=== PATIENT | female | born 1995 | race Caucasian/White ===

== ENCOUNTER 2018-02-23 22:59 | Inpatient (IN) | payer MEDICAID, OTHER ==
[~2018-02-23] VITALS: Ht 167.6 cm; Wt 63.6 kg
[~2018-02-23 22:59] MED LIST: DIVA250T25 PO; OLAN10TA3 PO
[2018-02-23 23:53] LABS: BASOPHILS % (AUTO) 0.2 % (0.0-2.0); EOSINOPHILS % (AUTO) 0.7 % (1.0-6.0); HEMATOCRIT 41.5 % (36-46); HEMOGLOBIN 14.3 g/dL (12.0-16.0); LYMPHOCYTES % (AUTO) 38.8 % (22.0-44.0); MEAN CORPUSCULAR HEMOGLOBIN 29.1 pg (26.0-34.0); MEAN CORPUSCULAR HGB CONC 34.5 G/dL (31.0-37.0); MEAN CORPUSCULAR VOLUME 84 fL (80-100); MONOCYTES # (AUTO) 0.5 K/uL (0.1-1.0); MONOCYTES % (AUTO) 7.1 % (2.0-9.0); NEUTROPHILS # (AUTO) 4.1 K/uL (1.8-7.7); NEUTROPHILS % (AUTO) 53.2 % (40.0-70.0); PLATELET COUNT (AUTO) 211 K/uL (150-450); RED BLOOD CELL COUNT(AUTO) 4.92 MIL/uL (4.00-5.20); RED CELL DISTRIBUTION WIDTH 12.7 % (11.5-14.5)
[2018-02-24 00:04] LABS: ANION GAP 7 mmol/L (8-16); CALCIUM, TOTAL 9.6 mg/dL (8.8-10.5); CARBON DIOXIDE 31 mmol/L (22-29); CHLORIDE 102 mmol/L (98-107); CREATININE 0.68 mg/dL (0.60-1.30); GLOMERULAR FILTR. RATE CALC > 60 mL/min (>60); GLUCOSE,RANDOM 88 mg/dL (70-110); POTASSIUM 3.9 mmol/L (3.5-5.1); SODIUM SERUM 140 mmol/L (136-145); UREA NITROGEN, BLOOD 15 mg/dL (7-18)
[2018-02-24 00:15] LABS: ALANINE AMINOTRANSFERASE 20 U/L (12-78); ALBUMIN 4.5 g/dL (3.4-5.0); ALKALINE PHOSPHATASE 57 U/L (46-116); ASPARTATE AMINOTRANSFERASE 14 U/L (15-37); BILIRUBIN,TOTAL 0.3 mg/dL (0.1-1.0); TOTAL PROTEIN, SERUM 8.3 g/dL (6.4-8.2)
[2018-02-24] MEDS ORDERED: HALOPERIDOL 5 MG TABLET PO PRN (01:30)
[2018-02-24 01:33] LABS: AMPHET/METH SCREEN,URINE NEGATIVE (NEGATIVE); BARBITURATE SCREEN, URINE NEGATIVE (NEGATIVE); BENZODIAZEPINES SCREEN,URINE NEGATIVE (NEGATIVE); CANNABINOID SCREEN,URINE NEGATIVE (NEGATIVE); COCAINE SCREEN,URINE NEGATIVE (NEGATIVE); METHADONE SCREEN, URINE NEGATIVE (NEGATIVE); OPIATE SCREEN,URINE NEGATIVE (NEGATIVE); PHENCYCLIDINE SCREEN,URINE NEGATIVE (NEGATIVE)
[2018-02-24 06:25] VITALS: BP 122/72
[2018-02-24 08:18] VITALS: BP 98/69
[2018-02-24] MEDS: DIVALPROEX SODIUM 500 MG DR TABLET PO SCH ×2 (10:21→17:29)
[2018-02-24 16:35] VITALS: BP 105/62
[2018-02-24] MEDS: OLANZapine 7.5 MG TABLET PO SCH (20:36)
[2018-02-24] MEDS: ZOLPIDEM TARTRATE 10 MG TABLET PO PRN (20:37)
[2018-02-25 08:17] VITALS: BP 100/57
[2018-02-25] MEDS: DIVALPROEX SODIUM 500 MG DR TABLET PO SCH ×2 (08:33→16:59)
[2018-02-25 16:22] VITALS: BP 109/66
[2018-02-25] MEDS: DOCUSATE SODIUM 100 MG CAPSULE PO SCH (16:59)
[2018-02-25] MEDS: OLANZapine 7.5 MG TABLET PO SCH (21:04)
[2018-02-26 05:55] VITALS: BP 112/67
[2018-02-26] MEDS: DOCUSATE SODIUM 100 MG CAPSULE PO SCH ×2 (08:12→16:11)
[2018-02-26] MEDS: DIVALPROEX SODIUM 500 MG DR TABLET PO SCH ×2 (08:12→16:11)
[2018-02-26 08:34] VITALS: BP 115/73
[2018-02-26 09:32] LABS: FREE T4 (FREE THYROXINE) 0.82 ng/dL (0.76-1.46); THYROID STIMULATING HORMONE 1.17 uIU/mL (0.36-3.74)
[2018-02-26 16:10] VITALS: BP 130/69
[2018-02-26] MEDS: OLANZapine 7.5 MG TABLET PO SCH (21:09)
[2018-02-27 06:00] VITALS: BP 109/66
[2018-02-27 08:28] VITALS: BP 119/60
[2018-02-27] MEDS: DOCUSATE SODIUM 100 MG CAPSULE PO SCH ×2 (08:28→16:14)
[2018-02-27] MEDS: DIVALPROEX SODIUM 500 MG DR TABLET PO SCH ×2 (08:28→16:14)
[2018-02-27 20:26] VITALS: BP 116/61
[2018-02-27] MEDS: OLANZapine 7.5 MG TABLET PO SCH (20:32)
[2018-02-28 07:22] VITALS: BP 118/64
[2018-02-28 08:00] VITALS: BP 110/68
[2018-02-28] MEDS: DOCUSATE SODIUM 100 MG CAPSULE PO SCH ×2 (08:29→16:06)
[2018-02-28] MEDS: DIVALPROEX SODIUM 500 MG DR TABLET PO SCH ×2 (08:29→16:07)
[2018-02-28 16:33] VITALS: BP 131/71
[2018-02-28] MEDS: OLANZapine 7.5 MG TABLET PO SCH (20:19)
[2018-03-01 07:22] VITALS: BP 132/81
[2018-03-01 09:13] VITALS: BP 104/54
[2018-03-01] MEDS: DOCUSATE SODIUM 100 MG CAPSULE PO SCH ×2 (10:03→16:56)
[2018-03-01] MEDS: DIVALPROEX SODIUM 500 MG DR TABLET PO SCH ×2 (10:03→16:56)
[2018-03-01 16:22] VITALS: BP 109/68
[2018-03-01] MEDS: OLANZapine 7.5 MG TABLET PO SCH (20:10)
[2018-03-01] MEDS: ZOLPIDEM TARTRATE 10 MG TABLET PO PRN (21:38)
[2018-03-02 07:00] VITALS: BP 108/65
[2018-03-02 08:17] VITALS: BP 106/61
[2018-03-02] MEDS: DIVALPROEX SODIUM 500 MG DR TABLET PO SCH ×2 (09:00→16:18)
[2018-03-02] MEDS: DOCUSATE SODIUM 100 MG CAPSULE PO SCH ×2 (09:00→16:19)
[2018-03-02 16:18] VITALS: BP 115/69
[2018-03-02] MEDS: LORazepam 2 MG TABLET PO PRN (16:18)
[2018-03-02] MEDS: OLANZapine 7.5 MG TABLET PO SCH (20:40)
[2018-03-02] MEDS: ZOLPIDEM TARTRATE 10 MG TABLET PO PRN (20:46)
[2018-03-03 04:25] VITALS: BP 116/70
[2018-03-03 08:12] VITALS: BP 114/61
[2018-03-03] MEDS: DOCUSATE SODIUM 100 MG CAPSULE PO SCH ×2 (10:16→17:21)
[2018-03-03] MEDS: DIVALPROEX SODIUM 500 MG DR TABLET PO SCH ×2 (10:17→17:22)
[2018-03-03 16:50] VITALS: BP 117/65
[2018-03-03] MEDS: LORazepam 2 MG TABLET PO PRN (18:10)
[2018-03-03] MEDS: OLANZapine 7.5 MG TABLET PO SCH (20:39)
[2018-03-04 04:35] VITALS: BP 114/76
[2018-03-04 08:23] VITALS: BP 106/63
[2018-03-04] MEDS: DIVALPROEX SODIUM 500 MG DR TABLET PO SCH ×2 (08:39→16:35)
[2018-03-04] MEDS: LORazepam 2 MG TABLET PO PRN (08:39)
[2018-03-04] MEDS: DOCUSATE SODIUM 100 MG CAPSULE PO SCH ×2 (08:39→16:35)
[2018-03-04 16:29] VITALS: BP 125/74
[2018-03-04] MEDS: OLANZapine 7.5 MG TABLET PO SCH (20:53)
[2018-03-05 07:26] VITALS: BP 101/64
[2018-03-05 09:29] VITALS: BP 119/72
[2018-03-05] MEDS: DIVALPROEX SODIUM 500 MG DR TABLET PO SCH ×2 (09:41→16:24)
[2018-03-05] MEDS: DOCUSATE SODIUM 100 MG CAPSULE PO SCH ×2 (09:41→16:24)
[2018-03-05 16:05] VITALS: BP 112/75
[2018-03-05] MEDS: OLANZapine 7.5 MG TABLET PO SCH (20:37)
[2018-03-06 06:38] VITALS: BP 109/69
[2018-03-06 08:16] VITALS: BP 103/62
[2018-03-06] MEDS: DIVALPROEX SODIUM 500 MG DR TABLET PO SCH ×2 (08:52→17:42)
[2018-03-06] MEDS: DOCUSATE SODIUM 100 MG CAPSULE PO SCH ×2 (08:52→17:42)
[2018-03-06 16:23] VITALS: BP 111/63
[2018-03-06] MEDS: OLANZapine 7.5 MG TABLET PO SCH (20:43)
[2018-03-07 06:23] VITALS: BP 110/70
[2018-03-07] MEDS: DOCUSATE SODIUM 100 MG CAPSULE PO SCH ×2 (08:13→16:23)
[2018-03-07] MEDS: DIVALPROEX SODIUM 500 MG DR TABLET PO SCH ×2 (08:14→16:23)
[2018-03-07 08:30] VITALS: BP 121/66
[2018-03-07 16:18] VITALS: BP 114/67
[2018-03-07] MEDS: OLANZapine 7.5 MG TABLET PO SCH (20:03)
[2018-03-07] MEDS ORDERED: OLAN7.5T2 PO (20:47)
[2018-03-07] MEDS ORDERED: DIVA500T35 PO (20:47)
[2018-03-07] MEDS ORDERED: DOCU100C33 PO (20:49)
[2018-03-08 06:19] VITALS: BP 103/64
[2018-03-08 08:31] VITALS: BP 104/61
[2018-03-08] MEDS: DIVALPROEX SODIUM 500 MG DR TABLET PO SCH (08:41)
[2018-03-08] MEDS: DOCUSATE SODIUM 100 MG CAPSULE PO SCH (08:41)
[2018-03-08] MEDS ORDERED: OLAN7.5T2 PO (10:26)
[2018-03-08] MEDS ORDERED: DSS100 PO (10:30)
== END 2018-03-08 13:30 | disposition home or self-care (01) | DRG 750 ==
LOC: EMS 22:59 → B3A 02-24 01:57 → B2S 02-24 01:57
PROVIDERS: ADMIT Psychiatry & Neurology Psychiatry; ATTEND Psychiatry & Neurology Psychiatry
DX: F20.0 Paranoid schizophrenia (principal); R45.851 Suicidal ideations; R00.1 Bradycardia, unspecified; E11.9 Type 2 diabetes mellitus without complications; I10 Essential (primary) hypertension
CPT/HCPCS: 83036; 84436; 84439; 84443; 87081; 99285; G0480

== ENCOUNTER 2019-11-18 14:39 | Emergency (ER) | payer MEDICAID, OTHER ==
[~2019-11-18 14:39] MED LIST changes: +DIVA-78 PO; -DIVA250T25 PO; +DSS100 PO; -OLAN10TA3 PO; +OLAN7.5T2 PO
[2019-11-18] MEDS ORDERED: DIVA-76 PO (23:16)
== END 2019-11-18 16:38 | disposition left against medical advice (07) ==
LOC: EMS 14:40
DX: F29 Unspecified psychosis not due to a substance or known physiological condition (principal); Z53.21 Procedure and treatment not carried out due to patient leaving prior to being seen by health care provider

== ENCOUNTER 2019-11-18 19:47 | Emergency (ER) | payer OTHER ==
[~2019-11-18] VITALS: Ht 175.3 cm; Wt 68.2 kg
[2019-11-18 21:15] LABS: BASOPHILS % (AUTO) 0.1 % (0.0-2.0); EOSINOPHILS % (AUTO) 0.9 % (1.0-6.0); HEMATOCRIT 41.5 % (36-46); HEMOGLOBIN 14.3 g/dL (12.0-16.0); LYMPHOCYTES # (AUTO) 2.2 K/uL (1.0-4.8); LYMPHOCYTES % (AUTO) 30.1 % (22.0-44.0); MEAN CORPUSCULAR HGB CONC 34.4 G/dL (31.0-37.0); MEAN CORPUSCULAR VOLUME 84 fL (80-100); MONOCYTES # (AUTO) 0.8 K/uL (0.1-1.0); MONOCYTES % (AUTO) 10.6 % (2.0-9.0); NEUTROPHILS # (AUTO) 4.3 K/uL (1.8-7.7); NEUTROPHILS % (AUTO) 58.3 % (40.0-70.0); PLATELET COUNT (AUTO) 223 K/uL (150-450); RED BLOOD CELL COUNT(AUTO) 4.92 MIL/uL (4.00-5.20); RED CELL DISTRIBUTION WIDTH 12.8 % (11.5-14.5)
[2019-11-18 21:25] LABS: ANION GAP 9 mmol/L (8-16); CALCIUM, TOTAL 9.4 mg/dL (8.8-10.5); CARBON DIOXIDE 28 mmol/L (22-29); CHLORIDE 104 mmol/L (98-107); CREATININE 0.78 mg/dL (0.60-1.30); GLOMERULAR FILTR. RATE CALC > 60 mL/min (>60); GLUCOSE,RANDOM 91 mg/dL (70-110); POTASSIUM 3.3 mmol/L (3.5-5.1); SODIUM SERUM 141 mmol/L (136-145); UREA NITROGEN, BLOOD 12 mg/dL (7-18)
[2019-11-18 21:30] LABS: ALANINE AMINOTRANSFERASE 16 U/L (12-78); ALBUMIN 4.8 g/dL (3.4-5.0); ALKALINE PHOSPHATASE 52 U/L (46-116); ASPARTATE AMINOTRANSFERASE 17 U/L (15-37); BILIRUBIN,TOTAL 0.4 mg/dL (0.1-1.0); TOTAL PROTEIN, SERUM 8.2 g/dL (6.4-8.2)
[2019-11-18 21:51] LABS: HCG,QUANTITATIVE < 1 mIU/mL (0-6)
[2019-11-18 22:06] LABS: VALPROIC ACID < 3 mcg/mL (50-100)
[2019-11-18] MEDS ORDERED: HALOPERIDOL 5 MG TABLET PO ONE (22:15)
[2019-11-18] MEDS ORDERED: POTASSIUM CHLORIDE 20 MEQ ER TABLET PO ONE (22:30)
[2019-11-18 22:35] VITALS: BP 137/75
[2019-11-18] MEDS ORDERED: DIVA-76 PO (23:16)
== END 2019-11-18 23:15 | disposition home or self-care (01) ==
LOC: EMS 19:49
DX: F25.9 Schizoaffective disorder, unspecified (principal); F31.9 Bipolar disorder, unspecified
CPT/HCPCS: 36415; 80053; 80164; 84702; 85025; 99284; G0480

== ENCOUNTER 2019-12-10 20:27 | Emergency (ER) | payer OTHER ==
[~2019-12-10] VITALS: Ht 175.3 cm; Wt 89.1 kg
[~2019-12-10 20:27] MED LIST changes: +DIVA-76 PO; -DIVA-78 PO; -DSS100 PO
[2019-12-10 21:15] VITALS: BP 128/78
[2019-12-11] MEDS ORDERED: LIDOCAINE 1% 10 ML VIAL ONE (00:54)
[2019-12-11] MEDS ORDERED: LEVONORGESTREL 1.5 MG TABLET PO ONE (01:00)
[2019-12-11] MEDS ORDERED: AZITHROMYCIN 250 MG TABLET PO ONE (01:00)
[2019-12-11] MEDS ORDERED: CefTRIAXone SODIUM 1 GM/VIAL IM ONE (01:00)
[2019-12-11] MEDS ORDERED: MetroNIDAZOLE 500 MG TABLET PO ONE (01:00)
== END 2019-12-11 01:41 | disposition home or self-care (01) ==
LOC: EMS 20:29
DX: Z20.2 Contact with and (suspected) exposure to infections with a predominantly sexual mode of transmission (principal); F31.9 Bipolar disorder, unspecified; F20.9 Schizophrenia, unspecified; Z79.899 Other long term (current) drug therapy
CPT/HCPCS: 81025; 96372; 99284; J0696; J3490

== ENCOUNTER 2020-02-07 17:15 | Inpatient (IN) | payer MEDICAID, OTHER ==
[~2020-02-07] VITALS: Ht 175.3 cm; Wt 94.4 kg
[2020-02-07 21:03] VITALS: BP 116/67
[2020-02-07 21:06] VITALS: BP 98/65
[2020-02-07] MEDS ORDERED: INFLUENZA VIRUS VACCINE QVS 2019-20 (3YR+)/PF 60 MCG/0.5 ML SYRINGE IM ONE (23:15)
[2020-02-07] MEDS: ZOLPIDEM TARTRATE 10 MG TABLET PO PRN (23:16)
[2020-02-08 00:13] VITALS: BP 101/61
[2020-02-08 07:18] LABS: BASOPHILS % (AUTO) 0.2 % (0.0-2.0); EOSINOPHILS % (AUTO) 1.4 % (1.0-6.0); HEMATOCRIT 40.7 % (36-46); HEMOGLOBIN 13.4 g/dL (12.0-16.0); LYMPHOCYTES # (AUTO) 3.1 K/uL (1.0-4.8); LYMPHOCYTES % (AUTO) 42.2 % (22.0-44.0); MEAN CORPUSCULAR HEMOGLOBIN 27.6 pg (26.0-34.0); MEAN CORPUSCULAR HGB CONC 32.9 G/dL (31.0-37.0); MEAN CORPUSCULAR VOLUME 84 fL (80-100); MONOCYTES # (AUTO) 0.5 K/uL (0.1-1.0); MONOCYTES % (AUTO) 7.6 % (2.0-9.0); NEUTROPHILS # (AUTO) 3.5 K/uL (1.8-7.7); NEUTROPHILS % (AUTO) 48.6 % (40.0-70.0); PLATELET COUNT (AUTO) 200 K/uL (150-450); RED BLOOD CELL COUNT(AUTO) 4.84 MIL/uL (4.00-5.20); RED CELL DISTRIBUTION WIDTH 13.8 % (11.5-14.5)
[2020-02-08 07:47] LABS: ALANINE AMINOTRANSFERASE 15 U/L (12-78); ALBUMIN 4.1 g/dL (3.4-5.0); ALKALINE PHOSPHATASE 52 U/L (46-116); ANION GAP 7 mmol/L (8-16); ASPARTATE AMINOTRANSFERASE 12 U/L (15-37); BILIRUBIN,TOTAL 0.2 mg/dL (0.1-1.0); CALCIUM, TOTAL 8.9 mg/dL (8.8-10.5); CARBON DIOXIDE 30 mmol/L (22-29); CHLORIDE 102 mmol/L (98-107); CHOL/HDL RATIO 2.8 (3.9-5.7); CHOLESTEROL 184 mg/dL (131-200); CREATININE 0.65 mg/dL (0.60-1.30); FREE T4 (FREE THYROXINE) 0.85 ng/dL (0.76-1.46); GLOMERULAR FILTR. RATE CALC > 60 mL/min (>60); GLUCOSE,RANDOM 82 mg/dL (70-110); HCG,QUANTITATIVE < 1 mIU/mL (0-6); HDL CHOLESTEROL 66 mg/dL (40-60); LDL CHOL (CALC.) 103 mg/dL (0-130); POTASSIUM 4.2 mmol/L (3.5-5.1); SODIUM SERUM 139 mmol/L (136-145); THYROID STIMULATING HORMONE 4.44 uIU/mL (0.36-3.74); TOTAL PROTEIN, SERUM 7.1 g/dL (6.4-8.2); TRIGLYCERIDES 74 mg/dL (15-150); UREA NITROGEN, BLOOD 16 mg/dL (7-18)
[2020-02-08 08:13] LABS: AMPHET/METH SCREEN,URINE NEGATIVE (NEGATIVE); BARBITURATE SCREEN, URINE NEGATIVE (NEGATIVE); BENZODIAZEPINES SCREEN,URINE NEGATIVE (NEGATIVE); CANNABINOID SCREEN,URINE NEGATIVE (NEGATIVE); COCAINE SCREEN,URINE NEGATIVE (NEGATIVE); METHADONE SCREEN, URINE NEGATIVE (NEGATIVE); OPIATE SCREEN,URINE NEGATIVE (NEGATIVE)
[2020-02-08 08:15] LABS: APPEARANCE,URINE CLEAR (CLEAR); BILIRUBIN,URINE NEGATIVE (NEGATIVE); GLUCOSE, URINE (UA) NEGATIVE (NEGATIVE); KETONES,URINE NEGATIVE (NEGATIVE); LEUKOCYTE ESTERASE ,URINE NEGATIVE (NEGATIVE); NITRATE,URINE NEGATIVE (NEGATIVE); OCCULT BLOOD,URINE NEGATIVE (NEGATIVE); PH,URINE 5.5 (5.0-8.0); PROTEIN,URINE NEGATIVE (NEGATIVE); UROBILINOGEN,URINE 0.2 mg/dL (<=1.0)
[2020-02-08 08:29] VITALS: BP 102/62
[2020-02-08 08:35] LABS: PHENCYCLIDINE SCREEN,URINE NEGATIVE (NEGATIVE)
[2020-02-08] MEDS ORDERED: MAG HYDROX/AL HYDROX/SIMETH ES 30 ML SUSPENSION UDCUP PO PRN (13:15)
[2020-02-08] MEDS ORDERED: ALBUTEROL SULFATE HFA 90 MCG/PUFF 8 GM INHALER IH PRN (13:15)
[2020-02-08] MEDS ORDERED: ONDANSETRON HCL 4 MG TABLET PO PRN (13:15)
[2020-02-08] MEDS ORDERED: CloNIDine HCL 0.1 MG TABLET PO PRN (13:15)
[2020-02-08] MEDS ORDERED: PETROLATUM,WHITE 28 GM JELLY TP PRN (13:15)
[2020-02-08] MEDS: LORazepam 2 MG TABLET PO PRN ×2 (13:15→21:55)
[2020-02-08] MEDS ORDERED: DOCUSATE SODIUM 100 MG CAPSULE PO PRN (13:15)
[2020-02-08] MEDS ORDERED: LOPERAMIDE HCL 2 MG CAPSULE PO PRN (13:15)
[2020-02-08] MEDS ORDERED: ACETAMINOPHEN 325 MG TABLET PO PRN (13:15)
[2020-02-08] MEDS ORDERED: GuaiFENesin/D-METHORPHAN [SUGAR-FREE] 200-20MG/10 ML SYRUP UDCUP PO PRN (13:15)
[2020-02-08] MEDS ORDERED: IBUPROFEN 400 MG TABLET PO PRN (13:15)
[2020-02-08] MEDS ORDERED: NICOTINE 14 MG/24 HOUR PATCH TD PRN (13:15)
[2020-02-08] MEDS ORDERED: MAGNESIUM HYDROXIDE SUSPENSION 30 ML UDCUP PO PRN (13:15)
[2020-02-08 16:10] VITALS: BP 124/69
[2020-02-08] MEDS: DIVALPROEX SODIUM 250 MG DR TABLET PO SCH (20:46)
[2020-02-08] MEDS: OLANZapine 7.5 MG TABLET PO SCH (20:46)
[2020-02-09 06:27] VITALS: BP 100/67
[2020-02-09 08:27] VITALS: BP 124/79
[2020-02-09] MEDS: HALOPERIDOL 5 MG TABLET PO PRN (10:30)
[2020-02-09] MEDS: LORazepam 2 MG TABLET PO PRN (10:30)
[2020-02-09 17:40] VITALS: BP 122/68
[2020-02-09] MEDS: DIVALPROEX SODIUM 250 MG DR TABLET PO SCH (20:39)
[2020-02-09] MEDS: OLANZapine 7.5 MG TABLET PO SCH (20:40)
[2020-02-10 04:20] VITALS: BP 120/74
[2020-02-10 08:29] VITALS: BP 118/69
[2020-02-10 16:18] VITALS: BP 132/77
[2020-02-10] MEDS: OLANZapine 7.5 MG TABLET PO SCH (20:18)
[2020-02-10] MEDS: DIVALPROEX SODIUM 250 MG DR TABLET PO SCH (20:18)
[2020-02-10] MEDS: ZOLPIDEM TARTRATE 10 MG TABLET PO PRN (22:58)
[2020-02-11 05:40] VITALS: BP 124/62
[2020-02-11 08:25] VITALS: BP 107/50
[2020-02-11] MEDS: LORazepam 2 MG TABLET PO PRN (09:38)
[2020-02-11] MEDS: HALOPERIDOL 5 MG TABLET PO PRN (09:38)
[2020-02-11 17:20] VITALS: BP 110/76
[2020-02-11] MEDS: OLANZapine 10 MG TABLET PO SCH (20:40)
[2020-02-11] MEDS: DIVALPROEX SODIUM 500 MG ER TABLET PO SCH (20:40)
[2020-02-12 03:29] VITALS: BP 121/67
[2020-02-12 09:12] VITALS: BP 110/53
[2020-02-12] MEDS: HALOPERIDOL 5 MG TABLET PO PRN (17:20)
[2020-02-12 18:18] VITALS: BP 134/90
[2020-02-12] MEDS: OLANZapine 10 MG TABLET PO SCH (20:46)
[2020-02-12] MEDS: DIVALPROEX SODIUM 500 MG ER TABLET PO SCH (20:46)
[2020-02-13 04:46] VITALS: BP 127/87
[2020-02-13 08:30] VITALS: BP 107/61
[2020-02-13] MEDS: LORazepam 2 MG TABLET PO PRN (17:31)
[2020-02-13 18:05] VITALS: BP 112/72
[2020-02-13] MEDS: OLANZapine 10 MG TABLET PO SCH (21:21)
[2020-02-13] MEDS: DIVALPROEX SODIUM 500 MG ER TABLET PO SCH (21:21)
[2020-02-14 04:47] VITALS: BP 110/71
[2020-02-14 08:40] VITALS: BP 117/56
[2020-02-14 18:36] VITALS: BP 139/70
[2020-02-14] MEDS: RisperiDONE 3 MG TABLET PO SCH (20:53)
[2020-02-14] MEDS: DIVALPROEX SODIUM 500 MG ER TABLET PO SCH (20:53)
[2020-02-14] MEDS: ZOLPIDEM TARTRATE 10 MG TABLET PO PRN (22:57)
[2020-02-15 01:47] VITALS: BP 132/89
[2020-02-15 08:42] VITALS: BP 132/79
[2020-02-15 16:20] VITALS: BP 110/64
[2020-02-15] MEDS: HALOPERIDOL 5 MG TABLET PO PRN (17:44)
[2020-02-15] MEDS: LORazepam 2 MG TABLET PO PRN (17:44)
[2020-02-15] MEDS: DIVALPROEX SODIUM 500 MG ER TABLET PO SCH (20:28)
[2020-02-15] MEDS: RisperiDONE 3 MG TABLET PO SCH (21:41)
[2020-02-16 06:09] VITALS: BP 106/68
[2020-02-16 08:44] VITALS: BP 106/52
[2020-02-16] MEDS: LORazepam 2 MG TABLET PO PRN (13:12)
[2020-02-16 18:45] VITALS: BP 122/70
[2020-02-16] MEDS ORDERED: OLANZapine 10 MG TABLET PO SCH (21:00)
[2020-02-16] MEDS: DIVALPROEX SODIUM 500 MG ER TABLET PO SCH (21:47)
[2020-02-17 05:01] VITALS: BP 110/68
[2020-02-17 09:00] VITALS: BP 101/58
[2020-02-17] MEDS ORDERED: DIVA500T52 PO (10:31)
[2020-02-17] MEDS ORDERED: OLAN10TA3 PO (10:31)
== END 2020-02-17 13:40 | disposition home or self-care (01) | DRG 750 ==
LOC: B3A 20:57
DX: F25.0 Schizoaffective disorder, bipolar type (principal); E11.9 Type 2 diabetes mellitus without complications; E03.9 Hypothyroidism, unspecified; F42.9 Obsessive-compulsive disorder, unspecified; G47.00 Insomnia, unspecified; F10.10 Alcohol abuse, uncomplicated; Y90.9 Presence of alcohol in blood, level not specified; F19.10 Other psychoactive substance abuse, uncomplicated; F41.9 Anxiety disorder, unspecified; Z79.899 Other long term (current) drug therapy; Z28.21 Immunization not carried out because of patient refusal
CPT/HCPCS: 80307; 83036; 84439; 84443; 87081

== ENCOUNTER 2020-03-02 15:29 | Inpatient (IN) | payer MEDICAID, OTHER ==
[~2020-03-02] VITALS: Ht 175.3 cm; Wt 102.7 kg
[~2020-03-02 15:29] MED LIST changes: -DIVA-76 PO; +DIVA-80 PO; +OLAN10TA3 PO; -OLAN7.5T2 PO
[2020-03-02 17:30] LABS: BASOPHILS % (AUTO) 0.2 % (0.0-2.0); EOSINOPHILS % (AUTO) 0.8 % (1.0-6.0); HEMATOCRIT 39.6 % (36-46); LYMPHOCYTES # (AUTO) 1.9 K/uL (1.0-4.8); MEAN CORPUSCULAR HEMOGLOBIN 27.3 pg (26.0-34.0); MEAN CORPUSCULAR HGB CONC 32.8 G/dL (31.0-37.0); MEAN CORPUSCULAR VOLUME 83 fL (80-100); MONOCYTES # (AUTO) 0.4 K/uL (0.1-1.0); NEUTROPHILS # (AUTO) 6.1 K/uL (1.8-7.7); PLATELET COUNT (AUTO) 255 K/uL (150-450); RED BLOOD CELL COUNT(AUTO) 4.76 MIL/uL (4.00-5.20)
[2020-03-02 17:40] LABS: AMPHET/METH SCREEN,URINE NEGATIVE (NEGATIVE); BARBITURATE SCREEN, URINE NEGATIVE (NEGATIVE); BENZODIAZEPINES SCREEN,URINE NEGATIVE (NEGATIVE); CANNABINOID SCREEN,URINE NEGATIVE (NEGATIVE); COCAINE SCREEN,URINE NEGATIVE (NEGATIVE); METHADONE SCREEN, URINE NEGATIVE (NEGATIVE); OPIATE SCREEN,URINE NEGATIVE (NEGATIVE); PHENCYCLIDINE SCREEN,URINE NEGATIVE (NEGATIVE)
[2020-03-02 17:45] LABS: ANION GAP 11 mmol/L (8-16); CALCIUM, TOTAL 9.3 mg/dL (8.8-10.5); CARBON DIOXIDE 27 mmol/L (22-29); CHLORIDE 103 mmol/L (98-107); CREATININE 0.53 mg/dL (0.60-1.30); GLOMERULAR FILTR. RATE CALC > 60 mL/min (>60); GLUCOSE,RANDOM 86 mg/dL (70-110); POTASSIUM 3.9 mmol/L (3.5-5.1); SODIUM SERUM 141 mmol/L (136-145); UREA NITROGEN, BLOOD 10 mg/dL (7-18)
[2020-03-02 17:59] LABS: ALANINE AMINOTRANSFERASE 17 U/L (12-78); ALBUMIN 4.3 g/dL (3.4-5.0); ALKALINE PHOSPHATASE 52 U/L (46-116); ASPARTATE AMINOTRANSFERASE 11 U/L (15-37); BILIRUBIN,TOTAL 0.2 mg/dL (0.1-1.0); HCG,QUANTITATIVE 1 mIU/mL (0-6); TOTAL PROTEIN, SERUM 7.8 g/dL (6.4-8.2); VALPROIC ACID 59 mcg/mL (50-100)
[2020-03-02] MEDS ORDERED: DIVALPROEX SODIUM 500 MG ER TABLET PO ONE (18:30)
[2020-03-02] MEDS ORDERED: OLANZapine 5 MG TABLET PO ONE (18:30)
[2020-03-02 18:59] LABS: APPEARANCE,URINE CLEAR (CLEAR); BILIRUBIN,URINE NEGATIVE (NEGATIVE); GLUCOSE, URINE (UA) NEGATIVE (NEGATIVE); KETONES,URINE NEGATIVE (NEGATIVE); LEUKOCYTE ESTERASE ,URINE TRACE (NEGATIVE); NITRATE,URINE NEGATIVE (NEGATIVE); OCCULT BLOOD,URINE LARGE (NEGATIVE); PROTEIN,URINE NEGATIVE (NEGATIVE); UROBILINOGEN,URINE 0.2 mg/dL (<=1.0)
[2020-03-02 19:10] LABS: WBC,URINE 0-2 /HPF (0-5)
[2020-03-02 19:11] LABS: BACTERIA,URINE Few /HPF (None Seen); SQUAMOUS EPITHELIAL CELL,UR Few /LPF (None Seen)
[2020-03-02 21:07] VITALS: BP 107/60
[2020-03-03] MEDS ORDERED: NICOTINE 14 MG/24 HOUR PATCH TD PRN (07:45)
[2020-03-03] MEDS ORDERED: ONDANSETRON HCL 4 MG TABLET PO PRN (07:45)
[2020-03-03] MEDS ORDERED: ALBUTEROL SULFATE HFA 90 MCG/PUFF 8 GM INHALER IH PRN (07:45)
[2020-03-03] MEDS ORDERED: DOCUSATE SODIUM 100 MG CAPSULE PO PRN (07:45)
[2020-03-03] MEDS ORDERED: LOPERAMIDE HCL 2 MG CAPSULE PO PRN (07:45)
[2020-03-03] MEDS ORDERED: CloNIDine HCL 0.1 MG TABLET PO PRN (07:45)
[2020-03-03] MEDS ORDERED: MAGNESIUM HYDROXIDE SUSPENSION 30 ML UDCUP PO PRN (07:45)
[2020-03-03] MEDS ORDERED: MAG HYDROX/AL HYDROX/SIMETH ES 30 ML SUSPENSION UDCUP PO PRN (07:45)
[2020-03-03] MEDS ORDERED: GuaiFENesin/D-METHORPHAN [SUGAR-FREE] 200-20MG/10 ML SYRUP UDCUP PO PRN (07:45)
[2020-03-03] MEDS ORDERED: PETROLATUM,WHITE 28 GM JELLY TP PRN (07:45)
[2020-03-03] MEDS ORDERED: IBUPROFEN 400 MG TABLET PO PRN (07:45)
[2020-03-03] MEDS ORDERED: ACETAMINOPHEN 325 MG TABLET PO PRN (07:45)
[2020-03-03 08:05] LABS: CHOL/HDL RATIO 2.9 (3.9-5.7); FREE T4 (FREE THYROXINE) 0.79 ng/dL (0.76-1.46)
[2020-03-03 08:51] VITALS: BP 118/76
[2020-03-03 16:38] VITALS: BP 117/60
[2020-03-03] MEDS: DIVALPROEX SODIUM 500 MG ER TABLET PO SCH (20:47)
[2020-03-03] MEDS: OLANZapine 10 MG TABLET PO SCH (20:47)
[2020-03-04 11:52] VITALS: BP 110/63
[2020-03-04 16:29] VITALS: BP 115/73
[2020-03-04] MEDS: DIVALPROEX SODIUM 500 MG ER TABLET PO SCH (20:44)
[2020-03-04] MEDS: OLANZapine 10 MG TABLET PO SCH (20:44)
[2020-03-05 10:01] VITALS: BP 104/71
[2020-03-05 16:35] VITALS: BP 134/84
[2020-03-05] MEDS: OLANZapine 10 MG TABLET PO SCH (20:17)
[2020-03-05] MEDS: DIVALPROEX SODIUM 500 MG ER TABLET PO SCH (20:17)
[2020-03-06 09:00] VITALS: BP 115/72
[2020-03-06 17:00] VITALS: BP 118/75
[2020-03-06] MEDS: OLANZapine 10 MG TABLET PO SCH (20:10)
[2020-03-06] MEDS: DIVALPROEX SODIUM 500 MG ER TABLET PO SCH (20:10)
[2020-03-07 09:43] VITALS: BP 115/75
[2020-03-07 16:09] VITALS: BP 133/74
[2020-03-07] MEDS: DIVALPROEX SODIUM 500 MG ER TABLET PO SCH (20:36)
[2020-03-07] MEDS: OLANZapine 10 MG TABLET PO SCH (20:36)
[2020-03-08 08:00] VITALS: BP 104/55
[2020-03-08 17:03] VITALS: BP 137/75
[2020-03-08] MEDS: DIVALPROEX SODIUM 500 MG ER TABLET PO SCH (20:51)
[2020-03-08] MEDS: OLANZapine 10 MG TABLET PO SCH (20:51)
[2020-03-09 08:00] VITALS: BP 128/78
[2020-03-09 17:00] VITALS: BP 118/70
[2020-03-09] MEDS: DIVALPROEX SODIUM 500 MG ER TABLET PO SCH (21:27)
[2020-03-09] MEDS: OLANZapine 10 MG TABLET PO SCH (21:27)
[2020-03-09] MEDS: HALOPERIDOL 5 MG TABLET PO PRN (21:33)
[2020-03-10 08:00] VITALS: BP 118/77
[2020-03-10] MEDS: HALOPERIDOL 5 MG TABLET PO PRN (16:43)
[2020-03-10 16:45] VITALS: BP 117/68
[2020-03-10] MEDS: DIVALPROEX SODIUM 500 MG ER TABLET PO SCH (21:19)
[2020-03-10] MEDS: OLANZapine 10 MG TABLET PO SCH (21:19)
[2020-03-11 00:25] VITALS: BP 116/77
[2020-03-11 09:39] VITALS: BP 107/67
[2020-03-11 16:00] VITALS: BP 120/73
[2020-03-11] MEDS: HALOPERIDOL 5 MG TABLET PO PRN (18:48)
[2020-03-11] MEDS: DIVALPROEX SODIUM 500 MG ER TABLET PO SCH (20:01)
[2020-03-11] MEDS: OLANZapine 10 MG TABLET PO SCH (20:01)
[2020-03-12] MEDS: HALOPERIDOL 5 MG TABLET PO PRN ×2 (09:48→16:08)
[2020-03-12 09:50] VITALS: BP 123/73
[2020-03-12] MEDS: LORazepam 2 MG TABLET PO PRN (16:07)
[2020-03-12 17:00] VITALS: BP 121/66
[2020-03-12] MEDS: DIVALPROEX SODIUM 500 MG ER TABLET PO SCH (20:00)
[2020-03-12] MEDS: OLANZapine 10 MG TABLET PO SCH (20:07)
[2020-03-13 10:11] VITALS: BP 115/68
[2020-03-13] MEDS: HALOPERIDOL 5 MG TABLET PO PRN ×2 (10:18→17:10)
[2020-03-13] MEDS: LORazepam 2 MG TABLET PO PRN (17:10)
[2020-03-13] MEDS: DIVALPROEX SODIUM 500 MG ER TABLET PO SCH (20:10)
[2020-03-13] MEDS: OLANZapine 10 MG TABLET PO SCH (20:11)
[2020-03-13 22:16] VITALS: BP 121/71
[2020-03-14 09:50] VITALS: BP 109/53
[2020-03-14 16:00] VITALS: BP 120/81
[2020-03-14] MEDS: DIVALPROEX SODIUM 500 MG ER TABLET PO SCH (20:48)
[2020-03-14] MEDS: OLANZapine 10 MG TABLET PO SCH (20:48)
[2020-03-14] MEDS: LORazepam 2 MG TABLET PO PRN (21:44)
[2020-03-14] MEDS: HALOPERIDOL 5 MG TABLET PO PRN (21:44)
[2020-03-15 16:48] VITALS: BP 117/78
[2020-03-15] MEDS: DIVALPROEX SODIUM 500 MG ER TABLET PO SCH (20:29)
[2020-03-15] MEDS: OLANZapine 10 MG TABLET PO SCH (20:29)
[2020-03-15] MEDS: LORazepam 2 MG TABLET PO PRN (20:32)
[2020-03-15] MEDS: HALOPERIDOL 5 MG TABLET PO PRN (20:32)
[2020-03-16 08:50] VITALS: BP 100/55
[2020-03-16] MEDS: HALOPERIDOL 5 MG TABLET PO PRN (16:49)
[2020-03-16] MEDS: LORazepam 2 MG TABLET PO PRN (16:49)
[2020-03-16 17:36] VITALS: BP 125/77
[2020-03-16] MEDS: DIVALPROEX SODIUM 500 MG ER TABLET PO SCH (20:09)
[2020-03-16] MEDS: OLANZapine 10 MG TABLET PO SCH (20:09)
[2020-03-17 08:59] VITALS: BP 150/95
[2020-03-17] MEDS: HALOPERIDOL 5 MG TABLET PO PRN (12:20)
[2020-03-17 16:40] VITALS: BP 124/74
[2020-03-17] MEDS: LORazepam 2 MG TABLET PO PRN (16:49)
[2020-03-17 17:28] VITALS: BP 120/71
[2020-03-17] MEDS: DIVALPROEX SODIUM 500 MG ER TABLET PO SCH (20:28)
[2020-03-17] MEDS: OLANZapine 10 MG TABLET PO SCH (20:29)
[2020-03-18 08:48] VITALS: BP 115/72
[2020-03-18 16:48] VITALS: BP 141/88
[2020-03-18] MEDS: OLANZapine 10 MG TABLET PO SCH (20:33)
[2020-03-18] MEDS: DIVALPROEX SODIUM 500 MG ER TABLET PO SCH (20:34)
[2020-03-19] MEDS: ZOLPIDEM TARTRATE 10 MG TABLET PO PRN ×2 (00:25→23:55)
[2020-03-19 00:46] VITALS: BP 111/70
[2020-03-19 08:30] VITALS: BP 118/68
[2020-03-19] MEDS: HALOPERIDOL 5 MG TABLET PO PRN (13:12)
[2020-03-19] MEDS: LORazepam 2 MG TABLET PO PRN (13:12)
[2020-03-19 16:57] VITALS: BP 125/78
[2020-03-19] MEDS ORDERED: TUBERCULIN, PURIFIED PROTEIN DERIVATIVE 5 TU/0.1 ML SYRINGE ID ONE (19:00)
[2020-03-19] MEDS: DIVALPROEX SODIUM 500 MG ER TABLET PO SCH (20:17)
[2020-03-19] MEDS: OLANZapine 10 MG TABLET PO SCH (20:17)
[2020-03-20 09:04] VITALS: BP 121/74
[2020-03-20] MEDS: LORazepam 2 MG TABLET PO PRN (15:04)
[2020-03-20 16:30] VITALS: BP 120/74
[2020-03-20] MEDS: HALOPERIDOL 5 MG TABLET PO PRN (18:56)
[2020-03-20] MEDS: OLANZapine 10 MG TABLET PO SCH (20:33)
[2020-03-20] MEDS: DIVALPROEX SODIUM 500 MG ER TABLET PO SCH (20:34)
[2020-03-21 09:35] VITALS: BP 101/57
[2020-03-21 17:39] VITALS: BP 129/74
[2020-03-21] MEDS: LORazepam 2 MG TABLET PO PRN (18:06)
[2020-03-21] MEDS: DIVALPROEX SODIUM 500 MG ER TABLET PO SCH (20:05)
[2020-03-21] MEDS: OLANZapine 10 MG TABLET PO SCH (20:06)
[2020-03-21] MEDS: ZOLPIDEM TARTRATE 10 MG TABLET PO PRN (23:48)
[2020-03-22 00:01] VITALS: BP 118/70
[2020-03-22] MEDS: LORazepam 2 MG TABLET PO PRN (16:29)
[2020-03-22] MEDS: HALOPERIDOL 5 MG TABLET PO PRN (16:29)
[2020-03-22 18:37] VITALS: BP 130/82
[2020-03-22] MEDS: OLANZapine 10 MG TABLET PO SCH (20:36)
[2020-03-22] MEDS: DIVALPROEX SODIUM 500 MG ER TABLET PO SCH (20:36)
[2020-03-23 10:48] VITALS: BP 101/64
[2020-03-23 16:43] VITALS: BP 110/71
[2020-03-23] MEDS: OLANZapine 10 MG TABLET PO SCH (20:14)
[2020-03-23] MEDS: DIVALPROEX SODIUM 500 MG ER TABLET PO SCH (20:14)
[2020-03-23] MEDS: LORazepam 2 MG TABLET PO PRN (20:14)
[2020-03-23] MEDS: ZOLPIDEM TARTRATE 10 MG TABLET PO PRN (22:24)
[2020-03-24 08:00] VITALS: BP 110/69
[2020-03-24] MEDS: OLANZapine 10 MG TABLET PO SCH (20:33)
[2020-03-24] MEDS: DIVALPROEX SODIUM 500 MG ER TABLET PO SCH (20:33)
[2020-03-24 22:15] VITALS: BP 133/62
[2020-03-24 23:10] VITALS: BP 145/77
[2020-03-24] MEDS: ZOLPIDEM TARTRATE 10 MG TABLET PO PRN (23:14)
[2020-03-25 08:16] VITALS: BP 135/69
[2020-03-25 09:35] VITALS: BP 119/75
[2020-03-25] MEDS: LORazepam 2 MG TABLET PO PRN (09:38)
[2020-03-25] MEDS: HALOPERIDOL 5 MG TABLET PO PRN (09:38)
[2020-03-25 16:40] VITALS: BP 123/76
[2020-03-25] MEDS: OLANZapine 10 MG TABLET PO SCH (20:04)
[2020-03-25] MEDS: DIVALPROEX SODIUM 500 MG ER TABLET PO SCH (20:05)
[2020-03-25] MEDS: ZOLPIDEM TARTRATE 10 MG TABLET PO PRN (23:15)
[2020-03-26 09:41] VITALS: BP 112/67
[2020-03-26] MEDS: HALOPERIDOL 5 MG TABLET PO PRN (18:46)
[2020-03-26] MEDS: LORazepam 2 MG TABLET PO PRN (18:46)
[2020-03-26 19:12] VITALS: BP 119/64
[2020-03-26] MEDS: DIVALPROEX SODIUM 500 MG ER TABLET PO SCH (20:27)
[2020-03-26] MEDS: OLANZapine 10 MG TABLET PO SCH (20:27)
[2020-03-27 00:24] VITALS: BP 110/68
[2020-03-27 08:38] VITALS: BP 104/80
[2020-03-27 16:00] VITALS: BP 128/84
[2020-03-27] MEDS: HALOPERIDOL 5 MG TABLET PO PRN (16:17)
[2020-03-27 16:31] VITALS: BP 123/81
[2020-03-27] MEDS: OLANZapine 10 MG TABLET PO SCH (20:11)
[2020-03-27] MEDS: DIVALPROEX SODIUM 500 MG ER TABLET PO SCH (20:11)
[2020-03-28 09:53] VITALS: BP 98/60
[2020-03-28] MEDS: LORazepam 2 MG TABLET PO PRN (18:04)
[2020-03-28] MEDS: HALOPERIDOL 5 MG TABLET PO PRN (18:04)
[2020-03-28 18:19] VITALS: BP 117/69
[2020-03-28] MEDS: OLANZapine 10 MG TABLET PO SCH (20:03)
[2020-03-28] MEDS: DIVALPROEX SODIUM 500 MG ER TABLET PO SCH (20:03)
[2020-03-29 04:57] VITALS: BP 141/64
[2020-03-29 09:27] VITALS: BP 106/57
[2020-03-29] MEDS: HALOPERIDOL 5 MG TABLET PO PRN (14:44)
[2020-03-29] MEDS: LORazepam 2 MG TABLET PO PRN (16:23)
[2020-03-29 16:59] VITALS: BP 113/78
[2020-03-29] MEDS: DIVALPROEX SODIUM 500 MG ER TABLET PO SCH (20:10)
[2020-03-29] MEDS: OLANZapine 10 MG TABLET PO SCH (20:10)
[2020-03-30 10:30] VITALS: BP 108/64
[2020-03-30 16:32] VITALS: BP 119/70
[2020-03-30] MEDS: DIVALPROEX SODIUM 500 MG ER TABLET PO SCH (20:00)
[2020-03-30] MEDS: OLANZapine 10 MG TABLET PO SCH (20:00)
[2020-03-30] MEDS: LORazepam 2 MG TABLET PO PRN (22:20)
[2020-03-31 10:26] VITALS: BP 114/72
[2020-03-31] MEDS: LORazepam 2 MG TABLET PO PRN (14:46)
[2020-03-31] MEDS: HALOPERIDOL 5 MG TABLET PO PRN (14:46)
[2020-03-31 20:14] VITALS: BP 114/52
[2020-03-31] MEDS: DIVALPROEX SODIUM 500 MG ER TABLET PO SCH (20:32)
[2020-03-31] MEDS: OLANZapine 10 MG TABLET PO SCH (20:32)
[2020-04-01] MEDS ORDERED: MAGNESIUM HYDROXIDE SUSPENSION 30 ML UDCUP PO PRN (08:00)
[2020-04-01] MEDS ORDERED: ACETAMINOPHEN 325 MG TABLET PO PRN (08:00)
[2020-04-01] MEDS ORDERED: PETROLATUM,WHITE 28 GM JELLY TP PRN (08:00)
[2020-04-01] MEDS ORDERED: IBUPROFEN 400 MG TABLET PO PRN (08:00)
[2020-04-01] MEDS ORDERED: DOCUSATE SODIUM 100 MG CAPSULE PO PRN (08:00)
[2020-04-01] MEDS ORDERED: NICOTINE 14 MG/24 HOUR PATCH TD PRN (08:00)
[2020-04-01] MEDS ORDERED: GuaiFENesin/D-METHORPHAN [SUGAR-FREE] 200-20MG/10 ML SYRUP UDCUP PO PRN (08:00)
[2020-04-01] MEDS ORDERED: LOPERAMIDE HCL 2 MG CAPSULE PO PRN (08:00)
[2020-04-01] MEDS ORDERED: CloNIDine HCL 0.1 MG TABLET PO PRN (08:00)
[2020-04-01] MEDS ORDERED: MAG HYDROX/AL HYDROX/SIMETH ES 30 ML SUSPENSION UDCUP PO PRN (08:00)
[2020-04-01] MEDS ORDERED: ONDANSETRON HCL 4 MG TABLET PO PRN (08:00)
[2020-04-01] MEDS ORDERED: ALBUTEROL SULFATE HFA 90 MCG/PUFF 8 GM INHALER IH PRN (08:00)
[2020-04-01 09:28] VITALS: BP 122/75
[2020-04-01] MEDS: HALOPERIDOL 5 MG TABLET PO PRN (16:21)
[2020-04-01] MEDS: LORazepam 2 MG TABLET PO PRN (16:22)
[2020-04-01 18:10] VITALS: BP 121/71
[2020-04-01] MEDS: OLANZapine 10 MG TABLET PO SCH (20:12)
[2020-04-01] MEDS: DIVALPROEX SODIUM 500 MG ER TABLET PO SCH (20:12)
[2020-04-02 08:36] VITALS: BP 122/70
[2020-04-02] MEDS: LORazepam 2 MG TABLET PO PRN (14:14)
[2020-04-02] MEDS: HALOPERIDOL 5 MG TABLET PO PRN (16:42)
[2020-04-02 19:00] VITALS: BP 106/66
[2020-04-02] MEDS: OLANZapine 10 MG TABLET PO SCH (20:02)
[2020-04-02] MEDS: DIVALPROEX SODIUM 500 MG ER TABLET PO SCH (20:02)
[2020-04-03 09:32] VITALS: BP 97/69
[2020-04-03 16:00] VITALS: BP 114/72
[2020-04-03] MEDS: LORazepam 2 MG TABLET PO PRN (16:23)
[2020-04-03] MEDS: HALOPERIDOL 5 MG TABLET PO PRN (16:23)
[2020-04-03] MEDS: OLANZapine 10 MG TABLET PO SCH (20:47)
[2020-04-03] MEDS: DIVALPROEX SODIUM 500 MG ER TABLET PO SCH (20:47)
[2020-04-04 08:37] VITALS: BP 108/75
[2020-04-04 16:05] VITALS: BP 113/66
[2020-04-04] MEDS: LORazepam 2 MG TABLET PO PRN (17:56)
[2020-04-04] MEDS: DIVALPROEX SODIUM 500 MG ER TABLET PO SCH (20:28)
[2020-04-04] MEDS: OLANZapine 10 MG TABLET PO SCH (20:28)
[2020-04-05 09:15] VITALS: BP 103/69
[2020-04-05] MEDS: LORazepam 2 MG TABLET PO PRN (12:16)
[2020-04-05 16:35] VITALS: BP 112/64
[2020-04-05] MEDS: OLANZapine 10 MG TABLET PO SCH (20:05)
[2020-04-05] MEDS: DIVALPROEX SODIUM 500 MG ER TABLET PO SCH (20:06)
[2020-04-06 00:12] VITALS: BP 113/71
[2020-04-06] MEDS: ZOLPIDEM TARTRATE 10 MG TABLET PO PRN (00:14)
[2020-04-06 08:46] VITALS: BP 105/65
[2020-04-06 16:05] VITALS: BP 116/80
[2020-04-06] MEDS: LORazepam 2 MG TABLET PO PRN (16:11)
[2020-04-06 16:56] VITALS: BP 112/68
[2020-04-06] MEDS: DIVALPROEX SODIUM 500 MG ER TABLET PO SCH (20:19)
[2020-04-06] MEDS: OLANZapine 10 MG TABLET PO SCH (20:19)
[2020-04-07 08:00] VITALS: BP 98/55
[2020-04-07 17:00] VITALS: BP 110/65
[2020-04-07] MEDS: DIVALPROEX SODIUM 500 MG ER TABLET PO SCH (20:07)
[2020-04-07] MEDS: OLANZapine 10 MG TABLET PO SCH (20:07)
[2020-04-07] MEDS: ZOLPIDEM TARTRATE 10 MG TABLET PO PRN (23:40)
[2020-04-08 00:05] VITALS: BP 107/62
[2020-04-08 08:57] VITALS: BP 104/48
[2020-04-08 16:05] VITALS: BP 137/73
[2020-04-08] MEDS: OLANZapine 10 MG TABLET PO SCH (21:17)
[2020-04-08] MEDS: DIVALPROEX SODIUM 500 MG ER TABLET PO SCH (21:17)
[2020-04-08] MEDS: ZOLPIDEM TARTRATE 10 MG TABLET PO PRN (23:36)
[2020-04-09] VITALS: BP 116/74
[2020-04-09 09:21] VITALS: BP 99/59
[2020-04-09 17:36] VITALS: BP 128/79
[2020-04-09] MEDS: DIVALPROEX SODIUM 500 MG ER TABLET PO SCH (20:13)
[2020-04-09] MEDS: OLANZapine 10 MG TABLET PO SCH (20:13)
[2020-04-09] MEDS: ZOLPIDEM TARTRATE 10 MG TABLET PO PRN (23:41)
[2020-04-10 00:09] VITALS: BP 129/76
[2020-04-10 08:40] VITALS: BP 109/76
[2020-04-10] MEDS: LORazepam 2 MG TABLET PO PRN (16:25)
[2020-04-10] MEDS: HALOPERIDOL 5 MG TABLET PO PRN (16:25)
[2020-04-10 17:45] VITALS: BP 105/73
[2020-04-10] MEDS: DIVALPROEX SODIUM 500 MG ER TABLET PO SCH (20:15)
[2020-04-10] MEDS: OLANZapine 10 MG TABLET PO SCH (20:15)
[2020-04-11 09:17] VITALS: BP 140/65
[2020-04-11 17:16] VITALS: BP 113/73
[2020-04-11] MEDS: OLANZapine 10 MG TABLET PO SCH (20:00)
[2020-04-11] MEDS: DIVALPROEX SODIUM 500 MG ER TABLET PO SCH (20:00)
[2020-04-12 08:29] VITALS: BP 119/76
[2020-04-12 16:00] VITALS: BP 112/74
[2020-04-12] MEDS: LORazepam 2 MG TABLET PO PRN (17:55)
[2020-04-12] MEDS: HALOPERIDOL 5 MG TABLET PO PRN (17:55)
[2020-04-12] MEDS: OLANZapine 10 MG TABLET PO SCH (20:12)
[2020-04-12] MEDS: DIVALPROEX SODIUM 500 MG ER TABLET PO SCH (20:12)
[2020-04-13 08:41] VITALS: BP 110/54
[2020-04-13 16:15] VITALS: BP 131/73
[2020-04-13] MEDS: LORazepam 2 MG TABLET PO PRN (16:35)
[2020-04-13] MEDS: HALOPERIDOL 5 MG TABLET PO PRN (16:36)
[2020-04-13] MEDS: DIVALPROEX SODIUM 500 MG ER TABLET PO SCH (20:05)
[2020-04-13] MEDS: OLANZapine 10 MG TABLET PO SCH (20:05)
[2020-04-14 08:00] VITALS: BP 93/54
[2020-04-14 09:30] VITALS: BP 103/64
[2020-04-14] MEDS: LORazepam 2 MG TABLET PO PRN (12:04)
[2020-04-14 16:00] VITALS: BP 121/64
[2020-04-14] MEDS: DIVALPROEX SODIUM 500 MG ER TABLET PO SCH (20:09)
[2020-04-14] MEDS: OLANZapine 10 MG TABLET PO SCH (20:09)
[2020-04-15 09:45] VITALS: BP 101/68
[2020-04-15 17:32] VITALS: BP 129/79
[2020-04-15] MEDS: LORazepam 2 MG TABLET PO PRN (17:44)
[2020-04-15] MEDS: HALOPERIDOL 5 MG TABLET PO PRN (17:44)
[2020-04-15] MEDS: OLANZapine 10 MG TABLET PO SCH (20:18)
[2020-04-15] MEDS: DIVALPROEX SODIUM 500 MG ER TABLET PO SCH (20:18)
[2020-04-16 08:00] VITALS: BP 101/71
[2020-04-16] MEDS: LORazepam 2 MG TABLET PO PRN (13:50)
[2020-04-16] MEDS: HALOPERIDOL 5 MG TABLET PO PRN (13:53)
[2020-04-16 16:33] VITALS: BP 127/81
[2020-04-16] MEDS: DIVALPROEX SODIUM 500 MG ER TABLET PO SCH (20:19)
[2020-04-16] MEDS: OLANZapine 10 MG TABLET PO SCH (20:20)
[2020-04-17 08:00] VITALS: BP 102/58
[2020-04-17] MEDS: HALOPERIDOL 5 MG TABLET PO PRN ×2 (11:28→19:36)
[2020-04-17] MEDS: LORazepam 2 MG TABLET PO PRN ×2 (11:28→19:36)
[2020-04-17 16:00] VITALS: BP 122/75
[2020-04-17] MEDS: OLANZapine 10 MG TABLET PO SCH (20:21)
[2020-04-17] MEDS: DIVALPROEX SODIUM 500 MG ER TABLET PO SCH (20:21)
[2020-04-18 08:00] VITALS: BP 100/68
[2020-04-18] MEDS: HALOPERIDOL 5 MG TABLET PO PRN ×2 (12:53→19:56)
[2020-04-18] MEDS: LORazepam 2 MG TABLET PO PRN ×2 (12:53→19:56)
[2020-04-18 16:00] VITALS: BP 119/75
[2020-04-18] MEDS: DIVALPROEX SODIUM 500 MG ER TABLET PO SCH (20:02)
[2020-04-18] MEDS: OLANZapine 10 MG TABLET PO SCH (20:02)
[2020-04-19 09:21] VITALS: BP 123/71
[2020-04-19] MEDS: LORazepam 2 MG TABLET PO PRN (14:43)
[2020-04-19] MEDS: HALOPERIDOL 5 MG TABLET PO PRN (14:43)
[2020-04-19 17:41] VITALS: BP 107/66
[2020-04-19] MEDS: OLANZapine 10 MG TABLET PO SCH (21:06)
[2020-04-19] MEDS: DIVALPROEX SODIUM 500 MG ER TABLET PO SCH (21:06)
[2020-04-20 08:00] VITALS: BP 108/59
[2020-04-20] MEDS: LORazepam 2 MG TABLET PO PRN (15:54)
[2020-04-20] MEDS: HALOPERIDOL 5 MG TABLET PO PRN (15:54)
[2020-04-20 16:00] VITALS: BP 131/77
[2020-04-20] MEDS: DIVALPROEX SODIUM 500 MG ER TABLET PO SCH (20:10)
[2020-04-20] MEDS: OLANZapine 10 MG TABLET PO SCH (20:10)
[2020-04-21 08:34] VITALS: BP 137/77
[2020-04-21 16:00] VITALS: BP 96/63
[2020-04-21 18:07] VITALS: BP 123/71
[2020-04-21] MEDS: LORazepam 2 MG TABLET PO PRN (18:09)
[2020-04-21] MEDS: OLANZapine 10 MG TABLET PO SCH (20:11)
[2020-04-21] MEDS: DIVALPROEX SODIUM 500 MG ER TABLET PO SCH (20:11)
[2020-04-22 08:00] VITALS: BP 104/66
[2020-04-22 16:00] VITALS: BP 112/72
[2020-04-22] MEDS: LORazepam 2 MG TABLET PO PRN (16:25)
[2020-04-22] MEDS: HALOPERIDOL 5 MG TABLET PO PRN (16:25)
[2020-04-22] MEDS: OLANZapine 10 MG TABLET PO SCH (20:05)
[2020-04-22] MEDS: DIVALPROEX SODIUM 500 MG ER TABLET PO SCH (20:05)
[2020-04-23 08:00] VITALS: BP 91/60
[2020-04-23 17:14] VITALS: BP 107/77
[2020-04-23] MEDS: DIVALPROEX SODIUM 500 MG ER TABLET PO SCH (20:52)
[2020-04-23] MEDS: OLANZapine 10 MG TABLET PO SCH (20:53)
[2020-04-24] VITALS: BP 132/87
[2020-04-24] MEDS: ZOLPIDEM TARTRATE 10 MG TABLET PO PRN ×2 (00:05→23:43)
[2020-04-24 16:00] VITALS: BP 122/80
[2020-04-24] MEDS: HALOPERIDOL 5 MG TABLET PO PRN (16:40)
[2020-04-24] MEDS: OLANZapine 10 MG TABLET PO SCH (20:11)
[2020-04-24] MEDS: DIVALPROEX SODIUM 500 MG ER TABLET PO SCH (20:11)
[2020-04-25 00:04] VITALS: BP 117/81
[2020-04-25 09:06] VITALS: BP 104/67
[2020-04-25] MEDS: HALOPERIDOL 5 MG TABLET PO PRN (16:17)
[2020-04-25] MEDS: LORazepam 2 MG TABLET PO PRN (16:17)
[2020-04-25 17:57] VITALS: BP 114/70
[2020-04-25] MEDS: OLANZapine 10 MG TABLET PO SCH (20:29)
[2020-04-25] MEDS: DIVALPROEX SODIUM 500 MG ER TABLET PO SCH (20:29)
[2020-04-26 08:41] VITALS: BP 108/67
[2020-04-26] MEDS: LORazepam 2 MG TABLET PO PRN (14:21)
[2020-04-26] MEDS: HALOPERIDOL 5 MG TABLET PO PRN (14:21)
[2020-04-26 16:00] VITALS: BP 108/68
[2020-04-26] MEDS: DIVALPROEX SODIUM 500 MG ER TABLET PO SCH (20:17)
[2020-04-26] MEDS: OLANZapine 10 MG TABLET PO SCH (20:17)
[2020-04-26] MEDS: ZOLPIDEM TARTRATE 10 MG TABLET PO PRN (22:31)
[2020-04-27] MEDS: LORazepam 2 MG TABLET PO PRN (00:07)
[2020-04-27] MEDS: HALOPERIDOL 5 MG TABLET PO PRN (00:07)
[2020-04-27 01:03] VITALS: BP 129/79
[2020-04-27 08:36] VITALS: BP 88/59
[2020-04-27 19:11] VITALS: BP 136/85
[2020-04-27] MEDS: OLANZapine 10 MG TABLET PO SCH (20:03)
[2020-04-27] MEDS: DIVALPROEX SODIUM 500 MG ER TABLET PO SCH (20:03)
[2020-04-28 08:00] VITALS: BP 99/58
[2020-04-28 16:01] VITALS: BP 115/65
[2020-04-28] MEDS: HALOPERIDOL 5 MG TABLET PO PRN (18:44)
[2020-04-28] MEDS: LORazepam 2 MG TABLET PO PRN (18:44)
[2020-04-28] MEDS: DIVALPROEX SODIUM 500 MG ER TABLET PO SCH (20:09)
[2020-04-28] MEDS: OLANZapine 10 MG TABLET PO SCH (20:09)
[2020-04-29] MEDS: HALOPERIDOL 5 MG TABLET PO PRN (00:11)
[2020-04-29] MEDS: ZOLPIDEM TARTRATE 10 MG TABLET PO PRN (00:11)
[2020-04-29 00:16] VITALS: BP 108/68
[2020-04-29 08:00] VITALS: BP 110/60
[2020-04-29 16:00] VITALS: BP 113/60
[2020-04-29] MEDS: LORazepam 2 MG TABLET PO PRN (16:41)
[2020-04-29] MEDS: OLANZapine 10 MG TABLET PO SCH (20:24)
[2020-04-29] MEDS: DIVALPROEX SODIUM 500 MG ER TABLET PO SCH (20:24)
[2020-04-30 08:00] VITALS: BP 93/58
[2020-04-30 16:00] VITALS: BP 125/77
[2020-04-30] MEDS: DIVALPROEX SODIUM 500 MG ER TABLET PO SCH (21:04)
[2020-04-30] MEDS: OLANZapine 10 MG TABLET PO SCH (21:04)
[2020-05-01 00:13] VITALS: BP 109/73
[2020-05-01] MEDS: LORazepam 2 MG TABLET PO PRN ×2 (01:07→16:30)
[2020-05-01] MEDS: ZOLPIDEM TARTRATE 10 MG TABLET PO PRN (01:07)
[2020-05-01 08:55] VITALS: BP 115/56
[2020-05-01 16:00] VITALS: BP 140/81
[2020-05-01] MEDS: HALOPERIDOL 5 MG TABLET PO PRN (16:30)
[2020-05-01] MEDS: OLANZapine 10 MG TABLET PO SCH (20:00)
[2020-05-01] MEDS: DIVALPROEX SODIUM 500 MG ER TABLET PO SCH (20:00)
[2020-05-02] MEDS: ZOLPIDEM TARTRATE 10 MG TABLET PO PRN (00:08)
[2020-05-02] MEDS: LORazepam 2 MG TABLET PO PRN ×2 (00:08→16:32)
[2020-05-02 09:32] VITALS: BP 94/46
[2020-05-02] MEDS: HALOPERIDOL 5 MG TABLET PO PRN (16:32)
[2020-05-02 16:52] VITALS: BP 117/69
[2020-05-02] MEDS: OLANZapine 10 MG TABLET PO SCH (20:20)
[2020-05-02] MEDS: DIVALPROEX SODIUM 500 MG ER TABLET PO SCH (20:20)
[2020-05-03 08:00] VITALS: BP 107/70
[2020-05-03] MEDS: HALOPERIDOL 5 MG TABLET PO PRN (16:04)
[2020-05-03 16:25] VITALS: BP 123/76
[2020-05-03 18:50] VITALS: BP 118/76
[2020-05-03] MEDS: LORazepam 2 MG TABLET PO PRN (18:59)
[2020-05-03] MEDS: OLANZapine 10 MG TABLET PO SCH (20:04)
[2020-05-03] MEDS: DIVALPROEX SODIUM 500 MG ER TABLET PO SCH (20:04)
[2020-05-04 08:00] VITALS: BP 132/90
[2020-05-04] MEDS: LORazepam 2 MG TABLET PO PRN (15:18)
[2020-05-04] MEDS: HALOPERIDOL 5 MG TABLET PO PRN (15:18)
[2020-05-04 16:00] VITALS: BP 123/75
[2020-05-04] MEDS: DIVALPROEX SODIUM 500 MG ER TABLET PO SCH (20:28)
[2020-05-04] MEDS: OLANZapine 10 MG TABLET PO SCH (20:28)
[2020-05-05 09:02] VITALS: BP 98/65
[2020-05-05 16:53] VITALS: BP 125/83
[2020-05-05] MEDS: OLANZapine 10 MG TABLET PO SCH (20:40)
[2020-05-05] MEDS: DIVALPROEX SODIUM 500 MG ER TABLET PO SCH (20:40)
[2020-05-06 00:15] VITALS: BP 134/74
[2020-05-06 09:00] VITALS: BP 122/72
== END 2020-05-06 12:15 | DRG 885 ==
LOC: EMS 15:30 → 3EI 18:26
DX: F25.0 Schizoaffective disorder, bipolar type (principal); N39.0 Urinary tract infection, site not specified; E02 Subclinical iodine-deficiency hypothyroidism; E11.9 Type 2 diabetes mellitus without complications; R31.9 Hematuria, unspecified; F10.10 Alcohol abuse, uncomplicated; F41.9 Anxiety disorder, unspecified; F19.10 Other psychoactive substance abuse, uncomplicated; Z59.0 Homelessness; Z79.899 Other long term (current) drug therapy; Z91.14 Patient's other noncompliance with medication regimen; Z03.818 Encounter for observation for suspected exposure to other biological agents ruled out
CPT/HCPCS: 84436; 84439; 87081; G0480

== ENCOUNTER 2025-04-24 03:33 | Inpatient (IN) | payer MEDICAID, OTHER ==
[~2025-04-24] VITALS: Ht 175.3 cm; Wt 119.7 kg
[~2025-04-24 03:33] MED LIST changes: +CLOZ100T61 PO; +DIVA-153 PO; -DIVA-80 PO; -OLAN10TA3 PO
[2025-04-24] MEDS: LORazepam 2 MG/ML VIAL IM ONE (03:55)
[2025-04-24 04:22] LABS: COVID AG,FIA SOURCE NASAL SWAB
[2025-04-24 04:24] LABS: PLATELET COUNT (AUTO) 348 K/uL (150-450); RED BLOOD CELL COUNT(AUTO) 4.55 MIL/uL (4.00-5.20); RED CELL DISTRIBUTION WIDTH 14.0 % (11.5-14.5); WHITE BLOOD COUNT (AUTO) 8.3 K/uL (4.5-11.0)
[2025-04-24 04:30] LABS: CALCIUM, TOTAL 8.8 mg/dL (8.8-10.5); CREATININE 0.67 mg/dL (0.60-1.30); GLOMERULAR FILTR. RATE CALC > 60 mL/min (>60); GLUCOSE,RANDOM 118 mg/dL (70-110); SODIUM SERUM 144 mmol/L (136-145); UREA NITROGEN, BLOOD 10 mg/dL (7-18)
[2025-04-24 04:45] LABS: SARS-COV2 (COVID) ANTIGEN,FIA Negative (Negative)
[2025-04-24] MEDS: POTASSIUM CHLORIDE 20 MEQ ER TABLET PO ONE (11:13)
[2025-04-24 12:22] VITALS: O2SAT 99
[2025-04-24 15:20] VITALS: BP 123/84; PULSE 85; RESP 18; TEMP 97.8; O2SAT 97
[2025-04-24] MEDS ORDERED: ALBUTEROL SULFATE HFA 90 MCG/PUFF 8 GM INHALER IH PRN (19:15)
[2025-04-24] MEDS ORDERED: DOCUSATE SODIUM 100 MG CAPSULE PO PRN (19:15)
[2025-04-24] MEDS ORDERED: NICOTINE 14 MG/24 HOUR PATCH TD PRN (19:15)
[2025-04-24] MEDS ORDERED: ACETAMINOPHEN 325 MG TABLET PO PRN (19:15)
[2025-04-24] MEDS ORDERED: GuaiFENesin/D-METHORPHAN [SUGAR-FREE] 200-20MG/10 ML SYRUP UDCUP PO PRN (19:15)
[2025-04-24] MEDS ORDERED: MAG HYDROX/ALUMINUM HYD/SIMETH ES 30 ML SUSPENSION UDCUP PO PRN (19:15)
[2025-04-24] MEDS ORDERED: ONDANSETRON 4 MG TABLET PO PRN (19:15)
[2025-04-24] MEDS ORDERED: LOPERAMIDE HCL 2 MG CAPSULE PO PRN (19:15)
[2025-04-24 20:50] VITALS: BP 105/62; PULSE 85; RESP 16; TEMP 97.8; O2SAT 98
[2025-04-24 21:53] VITALS: BP 105/62; PULSE 85; RESP 16; TEMP 97.5; O2SAT 97
[2025-04-24 22:43] VITALS: BP 105/62; PULSE 85; RESP 16; TEMP 97.7; O2SAT 97
[2025-04-25 08:10] VITALS: BP 104/61; PULSE 90; RESP 18; TEMP 97.8; O2SAT 100
[2025-04-25 09:35] LABS: PLATELET COUNT (AUTO) 306 K/uL (150-450); RED BLOOD CELL COUNT(AUTO) 4.69 MIL/uL (4.00-5.20); RED CELL DISTRIBUTION WIDTH 14.0 % (11.5-14.5); WHITE BLOOD COUNT (AUTO) 6.3 K/uL (4.5-11.0)
[2025-04-25 10:06] LABS: ASPARTATE AMINOTRANSFERASE 26 U/L (15-37); CALCIUM, TOTAL 8.7 mg/dL (8.8-10.5); CHOL/HDL RATIO 3.2 (3.9-5.7); CREATININE 0.58 mg/dL (0.60-1.30); GLOMERULAR FILTR. RATE CALC > 60 mL/min (>60); GLUCOSE,RANDOM 82 mg/dL (70-110); LDL CHOL (CALC.) 89 mg/dL (0-130); SODIUM SERUM 145 mmol/L (136-145); TOTAL PROTEIN, SERUM 6.8 g/dL (6.4-8.2); UREA NITROGEN, BLOOD 10 mg/dL (7-18)
[2025-04-25] MEDS ORDERED: BENZ-247 PO (12:02)
[2025-04-25] MEDS ORDERED: CLOZ200T8 PO (12:02)
[2025-04-25] MEDS ORDERED: DIVA-112 PO (12:02)
[2025-04-25] MEDS ORDERED: HALO5TAB2 PO (12:02)
[2025-04-25] MEDS: DIVALPROEX SODIUM 500 MG DR TABLET PO SCH (13:30)
[2025-04-25 20:18] VITALS: BP 130/80; PULSE 86; RESP 17; TEMP 97.7; O2SAT 99
[2025-04-25] MEDS: BENZTROPINE MESYLATE 1 MG TABLET PO SCH (21:05)
[2025-04-26 09:00] VITALS: BP 111/65; PULSE 86; RESP 18; TEMP 97.7; O2SAT 99
[2025-04-26 22:10] VITALS: BP_SYST 175; BP_DIAS 163; BP_DIAS 63; PULSE 89; RESP 18; TEMP 97.8; O2SAT 98
[2025-04-27 06:54] VITALS: BP 120/73; PULSE 62; O2SAT 99
[2025-04-27 09:02] VITALS: BP 83/61; PULSE 63; RESP 16; TEMP 97.3; O2SAT 98
[2025-04-27] MEDS: MAGNESIUM HYDROXIDE SUSPENSION 30 ML UDCUP PO PRN (13:21)
[2025-04-27 21:11] VITALS: BP 104/82; PULSE 88; RESP 16; TEMP 97.6; O2SAT 98
[2025-04-27] MEDS: ZOLPIDEM TARTRATE 10 MG TABLET PO PRN (21:17)
[2025-04-28 09:48] VITALS: BP 86/61; PULSE 68; RESP 16; TEMP 98.1; O2SAT 99
[2025-04-28 21:15] VITALS: BP 132/75; PULSE 102; RESP 17; TEMP 98.2; O2SAT 98
[2025-04-29 08:07] VITALS: BP 109/66; PULSE 95; RESP 18; TEMP 98.2; O2SAT 98
[2025-04-29 09:52] LABS: APPEARANCE,URINE CLEAR (CLEAR); GLUCOSE, URINE (UA) NEGATIVE (NEGATIVE); LEUKOCYTE ESTERASE ,URINE NEGATIVE (NEGATIVE); NITRATE,URINE NEGATIVE (NEGATIVE); OCCULT BLOOD,URINE LARGE (NEGATIVE); PH,URINE DRUG SCREEN 7.0 (5.0-8.0); SPECIFIC GRAVITIY, URINE 1.016 (1.003-1.030)
[2025-04-29 10:00] LABS: ALCOHOL, URINE DRUG SCREEN NEGATIVE (NEGATIVE); AMPHET/METH SCREEN,URINE NEGATIVE (NEGATIVE); BARBITURATE SCREEN, URINE NEGATIVE (NEGATIVE); CANNABINOID SCREEN,URINE NEGATIVE (NEGATIVE); COCAINE SCREEN,URINE NEGATIVE (NEGATIVE); METHADONE SCREEN, URINE NEGATIVE (NEGATIVE)
[2025-04-29 10:04] LABS: SQUAMOUS EPITHELIAL CELL,UR Rare /LPF (None Seen)
[2025-04-29 20:30] VITALS: BP 110/75; PULSE 99; RESP 17; TEMP 97.2; O2SAT 99
[2025-04-30 08:07] LABS: CLOZAPINE & NORCLOZAPINE 162 ng/mL; NORCLOZAPINE 32 ng/mL (Not Estab.)
[2025-04-30 08:25] VITALS: BP 113/76; PULSE 86; RESP 16; TEMP 97.6; O2SAT 98
[2025-04-30 20:00] VITALS: BP 113/81; PULSE 87; RESP 16; TEMP 97.3; O2SAT 98
[2025-05-01 09:48] VITALS: BP 118/60; PULSE 75; RESP 16; TEMP 97.3; O2SAT 97
[2025-05-01 20:28] VITALS: BP 118/82; PULSE 88; RESP 16; TEMP 97.4; O2SAT 98
[2025-05-02 21:42] VITALS: BP 108/77; PULSE 88; RESP 16; TEMP 97.5; O2SAT 97
[2025-05-03 07:51] LABS: PLATELET COUNT (AUTO) 305 K/uL (150-450); RED BLOOD CELL COUNT(AUTO) 5.04 MIL/uL (4.00-5.20); RED CELL DISTRIBUTION WIDTH 13.9 % (11.5-14.5); WHITE BLOOD COUNT (AUTO) 9.1 K/uL (4.5-11.0)
[2025-05-03 08:15] VITALS: BP 153/71; PULSE 78; RESP 16; TEMP 96.9; O2SAT 97
[2025-05-03 12:00] VITALS: BP 127/58; PULSE 84; RESP 16; TEMP 98
[2025-05-03 20:40] VITALS: BP 125/75; PULSE 75; RESP 16; TEMP 97.5
[2025-05-04 08:34] VITALS: BP 107/67; PULSE 77; RESP 17; TEMP 97.3; O2SAT 98
[2025-05-04 20:31] VITALS: BP 120/84; PULSE 94; RESP 17; TEMP 97.7; O2SAT 98
[2025-05-05 08:30] VITALS: BP 128/78; PULSE 79; RESP 17; TEMP 97.7; O2SAT 98
[2025-05-05 09:27] LABS: APPEARANCE,URINE CLEAR (CLEAR); GLUCOSE, URINE (UA) NEGATIVE (NEGATIVE); LEUKOCYTE ESTERASE ,URINE NEGATIVE (NEGATIVE); NITRATE,URINE NEGATIVE (NEGATIVE); OCCULT BLOOD,URINE NEGATIVE (NEGATIVE); SPECIFIC GRAVITIY, URINE 1.001 (1.003-1.030)
[2025-05-05 21:36] VITALS: BP 116/74; PULSE 82; RESP 16; TEMP 97.6; O2SAT 98
[2025-05-06 08:22] VITALS: BP 135/73; PULSE 67; RESP 17; TEMP 97.4; O2SAT 99
[2025-05-06 20:24] VITALS: BP 115/73; PULSE 90; RESP 16; TEMP 97.3; O2SAT 100
[2025-05-07 08:03] VITALS: BP 112/63; PULSE 63; RESP 17; TEMP 97; O2SAT 99
[2025-05-07 20:26] VITALS: BP 138/82; PULSE 95; RESP 17; TEMP 96.8; O2SAT 97
[2025-05-08 08:13] VITALS: BP 105/65; PULSE 66; RESP 16; TEMP 97.3; O2SAT 97
[2025-05-08 20:12] VITALS: BP 117/71; PULSE 95; RESP 17; TEMP 96.4; O2SAT 9
[2025-05-09 08:15] VITALS: BP 103/60; PULSE 70; RESP 17; TEMP 98; O2SAT 98
[2025-05-09 20:12] VITALS: BP 117/85; PULSE 98; RESP 18; TEMP 97.1; O2SAT 98
[2025-05-09] MEDS: IBUPROFEN 400 MG TABLET PO PRN (21:42)
[2025-05-10 08:30] VITALS: BP 131/92; PULSE 83; RESP 17; TEMP 97; O2SAT 96
[2025-05-10 08:48] LABS: PLATELET COUNT (AUTO) 335 K/uL (150-450); RED BLOOD CELL COUNT(AUTO) 5.16 MIL/uL (4.00-5.20); RED CELL DISTRIBUTION WIDTH 13.7 % (11.5-14.5); WHITE BLOOD COUNT (AUTO) 9.4 K/uL (4.5-11.0)
[2025-05-10 20:01] VITALS: BP 91/60; PULSE 89; RESP 16; TEMP 98.4; O2SAT 97
[2025-05-11 08:39] VITALS: BP 108/66; PULSE 75; RESP 16; TEMP 96.9; O2SAT 97
[2025-05-11 20:21] VITALS: BP 127/84; PULSE 86; RESP 16; TEMP 97.7; O2SAT 97
[2025-05-12 08:13] VITALS: BP 120/85; PULSE 79; RESP 16; TEMP 98; O2SAT 97
[2025-05-12 08:26] LABS: PLATELET COUNT (AUTO) 323 K/uL (150-450); RED BLOOD CELL COUNT(AUTO) 4.95 MIL/uL (4.00-5.20); RED CELL DISTRIBUTION WIDTH 14.0 % (11.5-14.5); WHITE BLOOD COUNT (AUTO) 9.9 K/uL (4.5-11.0)
[2025-05-12 08:48] LABS: CALCIUM, TOTAL 9.0 mg/dL (8.8-10.5); CREATININE 0.48 mg/dL (0.60-1.30); GLOMERULAR FILTR. RATE CALC > 60 mL/min (>60); GLUCOSE,RANDOM 98 mg/dL (70-110); SODIUM SERUM 140 mmol/L (136-145); UREA NITROGEN, BLOOD 9 mg/dL (7-18)
[2025-05-12 20:19] VITALS: BP 116/73; PULSE 83; RESP 17; TEMP 97.4
[2025-05-13 08:26] VITALS: BP 138/88; PULSE 86; RESP 18; TEMP 97.7; O2SAT 98
[2025-05-13 20:19] VITALS: BP 136/89; PULSE 65; RESP 18; TEMP 98; O2SAT 98
[2025-05-14 08:22] VITALS: BP 127/80; PULSE 68; RESP 16; TEMP 96.9; O2SAT 97
[2025-05-14 20:34] VITALS: BP 131/73; PULSE 80; RESP 17; TEMP 97.7; O2SAT 97
[2025-05-15 08:11] VITALS: BP 100/55; PULSE 67; RESP 17; TEMP 97.4; O2SAT 99
[2025-05-15 20:18] VITALS: BP 137/86; PULSE 101; RESP 17; TEMP 97.1; O2SAT 97
[2025-05-16 08:33] VITALS: BP 114/71; PULSE 75; RESP 16; TEMP 97.6; O2SAT 98
[2025-05-16 20:23] VITALS: BP 122/76; PULSE 98; RESP 17; TEMP 98.1; O2SAT 98
[2025-05-17 08:15] VITALS: BP 136/64; PULSE 69; RESP 16; TEMP 97.3; O2SAT 100
[2025-05-17] MEDS: PETROLATUM,WHITE 28 GM JELLY TP PRN (18:57)
[2025-05-17 20:25] VITALS: BP 136/92; PULSE 89; RESP 17; TEMP 98.4; O2SAT 94
[2025-05-18 08:11] VITALS: BP 147/93; PULSE 94; RESP 16; TEMP 98.6; O2SAT 98
[2025-05-18 09:15] LABS: PLATELET COUNT (AUTO) 326 K/uL (150-450); RED BLOOD CELL COUNT(AUTO) 4.96 MIL/uL (4.00-5.20); RED CELL DISTRIBUTION WIDTH 14.2 % (11.5-14.5); WHITE BLOOD COUNT (AUTO) 8.3 K/uL (4.5-11.0)
[2025-05-18] MEDS: TERBINAFINE HCL 1% 30 GM CREAM TP SCH (16:19)
[2025-05-18 20:16] VITALS: BP 131/76; PULSE 83; RESP 17; TEMP 97.7; O2SAT 98
[2025-05-19 08:15] VITALS: BP 127/88; PULSE 91; RESP 17; TEMP 97.5; O2SAT 98
[2025-05-19 20:34] VITALS: BP 139/80; PULSE 90; RESP 18; TEMP 98.1; O2SAT 98
[2025-05-20 08:18] VITALS: BP 110/66; PULSE 80; RESP 16; TEMP 97.8; O2SAT 99
[2025-05-20 20:08] VITALS: BP 126/89; PULSE 94; RESP 18; TEMP 98.2; O2SAT 96
[2025-05-21 08:32] VITALS: BP 113/85; PULSE 91; RESP 16; TEMP 97.3; O2SAT 98
[2025-05-21 20:17] VITALS: BP 141/96; PULSE 104; RESP 18; TEMP 98; O2SAT 98
[2025-05-22 08:21] VITALS: BP 119/80; PULSE 80; RESP 16; TEMP 97.8; O2SAT 96
[2025-05-22 20:29] VITALS: BP 134/92; PULSE 100; RESP 17; TEMP 98.2; O2SAT 98
[2025-05-23 08:14] VITALS: BP 109/70; PULSE 82; RESP 17; TEMP 98; O2SAT 100
[2025-05-23 21:15] VITALS: BP 141/90; PULSE 92; RESP 19; TEMP 97.1; O2SAT 96
[2025-05-24 08:23] VITALS: BP 129/83; PULSE 77; RESP 17; TEMP 97.2; O2SAT 99
[2025-05-24 20:36] VITALS: BP 104/66; RESP 17; TEMP 98; O2SAT 84
[2025-05-24 20:39] VITALS: BP 130/80; RESP 18; TEMP 98.3
[2025-05-25 08:32] LABS: PLATELET COUNT (AUTO) 316 K/uL (150-450); RED BLOOD CELL COUNT(AUTO) 4.91 MIL/uL (4.00-5.20); RED CELL DISTRIBUTION WIDTH 14.4 % (11.5-14.5); WHITE BLOOD COUNT (AUTO) 8.3 K/uL (4.5-11.0)
[2025-05-25 08:34] VITALS: BP 120/70; PULSE 76; RESP 18; TEMP 97.2; O2SAT 98
[2025-05-25 20:14] VITALS: BP 111/73; PULSE 82; RESP 19; TEMP 97.8; O2SAT 99
[2025-05-26] MEDS: ZOLPIDEM TARTRATE 10 MG TABLET PO PRN (02:44)
[2025-05-26 08:24] VITALS: BP 152/70; PULSE 78; RESP 16; TEMP 97.6; O2SAT 98
[2025-05-26 09:00] VITALS: BP 124/87; RESP 16
[2025-05-26 20:17] VITALS: BP 132/83; PULSE 86; RESP 17; TEMP 98.2; O2SAT 97
[2025-05-27 08:16] VITALS: BP 121/77; PULSE 80; RESP 17; TEMP 97.2; O2SAT 96
[2025-05-27 20:11] VITALS: BP 135/84; PULSE 92; RESP 18; TEMP 98.1; O2SAT 98
[2025-05-27] MEDS: TUBERCULIN, PURIFIED PROTEIN DERIVATIVE 5 TU/0.1 ML SYRINGE ID ONE (22:57)
[2025-05-28 08:32] VITALS: BP 114/76; PULSE 83; RESP 16; TEMP 97.8; O2SAT 97
[2025-05-28 20:09] VITALS: BP 128/79; PULSE 89; RESP 19; TEMP 97.5; O2SAT 98
[2025-05-29 08:41] VITALS: BP 125/85; PULSE 96; RESP 17; TEMP 97.5; O2SAT 98
[2025-05-29 21:21] VITALS: BP 128/78; PULSE 90; RESP 18; TEMP 97; O2SAT 97
[2025-05-30 08:19] VITALS: BP 118/77; PULSE 95; RESP 18; TEMP 97.1; O2SAT 98
[2025-05-30 21:24] VITALS: BP 115/90; PULSE 87; RESP 16; TEMP 97.3; O2SAT 100
[2025-05-31 08:22] VITALS: BP 140/86; PULSE 86; RESP 16; TEMP 98.3; O2SAT 98
[2025-05-31 22:16] VITALS: BP 133/80; PULSE 98; RESP 18; TEMP 97.7; O2SAT 98
[2025-06-01 08:18] VITALS: BP 105/71; PULSE 75; RESP 18; TEMP 97.6; O2SAT 99
[2025-06-01 09:00] LABS: PLATELET COUNT (AUTO) 311 K/uL (150-450); RED BLOOD CELL COUNT(AUTO) 4.99 MIL/uL (4.00-5.20); RED CELL DISTRIBUTION WIDTH 14.7 % (11.5-14.5); WHITE BLOOD COUNT (AUTO) 8.4 K/uL (4.5-11.0)
[2025-06-01 20:24] VITALS: BP 122/90; PULSE 94; RESP 18; TEMP 98; O2SAT 98
[2025-06-01 22:35] VITALS: BP 142/92; PULSE 99; RESP 18; TEMP 97.6; O2SAT 96
[2025-06-02 08:14] VITALS: BP 107/67; PULSE 76; RESP 17; TEMP 97.4; O2SAT 98
[2025-06-02 20:15] VITALS: BP 121/73; PULSE 84; RESP 18; TEMP 98.1; O2SAT 98
[2025-06-03 08:20] VITALS: BP 108/60; PULSE 68; RESP 17; TEMP 97.3; O2SAT 97
[2025-06-04 02:31] VITALS: BP 141/90; PULSE 88; RESP 15; TEMP 98.1
[2025-06-04 08:26] VITALS: BP 100/52; PULSE 73; RESP 18; TEMP 97.4; O2SAT 97
[2025-06-04 20:14] VITALS: BP 121/85; PULSE 91; RESP 17; TEMP 97.9; O2SAT 99
[2025-06-05 08:27] VITALS: BP 120/60; PULSE 73; RESP 17; TEMP 98; O2SAT 98
[2025-06-05 20:15] VITALS: BP 134/84; PULSE 89; RESP 17; TEMP 97.7; O2SAT 97
[2025-06-05] MEDS: DIVALPROEX SODIUM 500 MG DR TABLET PO SCH (21:14)
[2025-06-06 08:08] VITALS: BP 138/90; PULSE 77; RESP 17; TEMP 98; O2SAT 100
[2025-06-06 20:36] VITALS: BP 130/84; PULSE 105; RESP 17; TEMP 98.4; O2SAT 97
[2025-06-07 08:06] VITALS: BP 134/80; PULSE 87; RESP 17; TEMP 97.7; O2SAT 100
[2025-06-07 22:50] VITALS: BP 133/81; PULSE 81; RESP 18; TEMP 97.5; O2SAT 100
[2025-06-08 08:16] LABS: PLATELET COUNT (AUTO) 342 K/uL (150-450); RED BLOOD CELL COUNT(AUTO) 5.00 MIL/uL (4.00-5.20); RED CELL DISTRIBUTION WIDTH 14.7 % (11.5-14.5); WHITE BLOOD COUNT (AUTO) 8.1 K/uL (4.5-11.0)
[2025-06-08 09:29] VITALS: BP 122/85; PULSE 81; RESP 17; TEMP 98.1; O2SAT 98
[2025-06-08 20:22] VITALS: BP 112/68; PULSE 94; RESP 18; TEMP 98; O2SAT 98
[2025-06-09 08:29] VITALS: BP 128/82; PULSE 92; RESP 16; TEMP 97.3; O2SAT 98
[2025-06-09 20:23] VITALS: BP 109/81; PULSE 89; RESP 17; TEMP 98.6; O2SAT 98
[2025-06-10 09:01] VITALS: BP 124/82; PULSE 88; RESP 17; TEMP 97.4; O2SAT 98
[2025-06-10 20:17] VITALS: BP 128/90; PULSE 95; RESP 17; TEMP 97.6; O2SAT 96
[2025-06-11 08:23] VITALS: BP 120/71; PULSE 76; RESP 19; TEMP 97.6; O2SAT 96
[2025-06-11 20:51] VITALS: BP 130/101; PULSE 113; RESP 17; TEMP 98.2; O2SAT 97
[2025-06-12 08:37] VITALS: BP 135/98; PULSE 97; RESP 18; TEMP 97.4; O2SAT 99
[2025-06-12 20:15] VITALS: BP 141/92; PULSE 103; RESP 17; TEMP 98.2; O2SAT 95
[2025-06-13 08:31] VITALS: BP 127/80; PULSE 100; RESP 17; TEMP 98; O2SAT 100
[2025-06-13 20:55] VITALS: BP 131/90; RESP 16; TEMP 97.7; O2SAT 100
[2025-06-14 08:07] VITALS: BP 141/81; PULSE 75; RESP 16; TEMP 97.1; O2SAT 100
[2025-06-14 20:34] VITALS: BP 127/87; PULSE 17; RESP 17; TEMP 97; O2SAT 100
[2025-06-15 08:11] VITALS: BP 114/86; PULSE 97; RESP 18; TEMP 97.2; O2SAT 99
[2025-06-15 09:50] LABS: PLATELET COUNT (AUTO) 313 K/uL (150-450); RED BLOOD CELL COUNT(AUTO) 5.22 MIL/uL (4.00-5.20); RED CELL DISTRIBUTION WIDTH 15.4 % (11.5-14.5); WHITE BLOOD COUNT (AUTO) 7.3 K/uL (4.5-11.0)
[2025-06-15 20:15] VITALS: BP 157/93; PULSE 78; RESP 19; TEMP 97.7; O2SAT 98
[2025-06-16 08:10] VITALS: BP 135/85; PULSE 100; RESP 18; TEMP 98; O2SAT 97
[2025-06-16 21:25] VITALS: BP 133/92; PULSE 104; RESP 17; TEMP 97.5; O2SAT 96
[2025-06-17] MEDS ORDERED: CLOZ25TA PO (09:20)
[2025-06-17] MEDS ORDERED: DIVA-112 PO (09:28)
[2025-06-17] MEDS ORDERED: TERB30CR8 TP (09:36)
[2025-06-17 17:15] VITALS: RESP 18
[2025-06-17 18:30] LABS: GLUCOMETER DEV NAME(LOC) POC.BV; POC SARS-COV2 AG, FIA NEGATIVE (NEGATIVE)
[2025-06-17 20:29] VITALS: BP 123/82; PULSE 93; RESP 17; TEMP 97.9; O2SAT 99
[2025-06-18 08:15] VITALS: BP 121/70; PULSE 94; RESP 17; TEMP 97.5; O2SAT 99
== END 2025-06-18 09:05 | DRG 750 ==
LOC: EMS 04:40 → B2S 11:06 → B3A 04-29 10:24
PROVIDERS: ADMIT Psychiatry & Neurology Psychiatry; ATTEND Psychiatry & Neurology Psychiatry
PROC: GZ56ZZZ Individual Psychotherapy, Supportive (ICD-10-PCS; 2025-04-25)
PROC: GZ58ZZZ Individual Psychotherapy, Cognitive-Behavioral (ICD-10-PCS; 2025-04-25)
PROC: GZHZZZZ Group Psychotherapy (ICD-10-PCS; principal; 2025-04-27)
PROC: GZ52ZZZ Individual Psychotherapy, Cognitive (ICD-10-PCS; 2025-04-28)
DX: F20.0 Paranoid schizophrenia (principal); B35.1 Tinea unguium; E87.6 Hypokalemia; Z20.822 Contact with and (suspected) exposure to COVID-19; Z79.899 Other long term (current) drug therapy; F41.9 Anxiety disorder, unspecified
CPT/HCPCS: 80048; 80053; 80061; 80159; 80164; 80307; 81001; 83036; 84436; 84443; 84703; 85025; 96372; 99285; G0480; J1200; J1630; J2060; J3230; Q0162